=== PATIENT | male | born 1945 | race Caucasian/White ===

== ENCOUNTER → 2020-05-03 | Outpatient (CLI) | payer MEDICARE ==
[~2020-05-03] MED LIST: COMBIVENT0.074 GM/I INH; FLOMAX0.4 MG PO; LISINOPRIL-HCT1 EAC2 PO; NEURONTIN400 MG PO; NORVASC2.5 MG PO; OXYCODONE HCL5 M1 PO; OXYCONTIN30 MG PO; PRILOSEC OTC20 MG PO; PROSCAR5 MG PO; VITAMIN D31000 UNI1 PO
== END ==
LOC: KOH-I 08:20
DX: D47.3 Essential (hemorrhagic) thrombocythemia (principal)
CPT/HCPCS: 76705

== ENCOUNTER → 2020-07-17 | Outpatient (CLI) | payer MEDICARE | LOC: EXRD 06-29 10:30 | DX: I71.4 Abdominal aortic aneurysm, without rupture (principal) | CPT/HCPCS: 93979 ==

== ENCOUNTER → 2020-08-14 | Outpatient (CLI) | payer MEDICARE | LOC: KOH-I 07-28 13:30 | DX: Z12.2 Encounter for screening for malignant neoplasm of respiratory organs (principal); R91.1 Solitary pulmonary nodule; Z87.891 Personal history of nicotine dependence | CPT/HCPCS: 71271 ==

== ENCOUNTER → 2020-11-03 | Outpatient (CLI) | payer MEDICARE | LOC: EXRD 08:37 | DX: N32.89 Other specified disorders of bladder (principal) | CPT/HCPCS: 76857 ==

== ENCOUNTER → 2020-11-30 | Outpatient (CLI) | payer MEDICARE | LOC: CT 11-24 08:00 | DX: N32.89 Other specified disorders of bladder (principal); R33.9 Retention of urine, unspecified; N40.0 Benign prostatic hyperplasia without lower urinary tract symptoms; I71.4 Abdominal aortic aneurysm, without rupture; N28.9 Disorder of kidney and ureter, unspecified; N20.0 Calculus of kidney | CPT/HCPCS: 36415; 82565; 84520; Q9967 ==

== ENCOUNTER → 2021-06-11 | Outpatient (CLI) | payer MEDICARE | LOC: KOH-I 05-17 15:00 | DX: R91.1 Solitary pulmonary nodule (principal); I71.2 Thoracic aortic aneurysm, without rupture | CPT/HCPCS: 71250 ==

== ENCOUNTER → 2021-08-30 | Outpatient (CLI) | payer MEDICARE | LOC: HEART 5 14:47 | DX: J44.9 Chronic obstructive pulmonary disease, unspecified (principal) | CPT/HCPCS: 94060; 94729 ==